=== PATIENT | male | born 1955 | race Caucasian/White ===

== ENCOUNTER → 2016-11-22 | Outpatient (CLI) | payer BC ==
--- NOTE | 2016-11-24 05:51 | SLEEPCENT ---
DATE OF PROCEDURE: 11/22/2016 ORDERED BY: CAPO Rasheed Nocturnal polysomnography was performed for the titration of pressure therapy in this patient with obstructive sleep apnea syndrome, apnea hypopnea index of 19. For testing, the patient was fit with a ResMed AirFit F10 full face mask of medium size. 4 cm of water pressure were applied to the circuit and the lights were extinguished. 7 hours and 47 minutes of data were reviewed. There were 398 minutes of sleep identified. Sleep latency was prolonged at 35 minutes. Rapid eye movement (REM) latency was short at 53 minutes. Sleep architecture was good with 5 REM periods appreciated. Overall sleep efficiency was 86%. The patient's electrocardiogram (EKG) showed a sinus rhythm with an average heart rate of 62 beats per minute. Electroencephalogram (EEG) showed reasonably normal waveforms for awake and sleep. No focal events were identified. Respiratory events were found palliated with CPAP at a pressure of +10 with which pressure the patient slept through REM without oxygen desaturation. Remaining measures of sleep physiology were normal. IMPRESSION: Obstructive sleep apnea syndrome (G47.33). RECOMMENDATION: Nightly use of pressure therapy 10 cm of water.
== END ==
LOC: M SLEEP 19:29
PROVIDERS: ATTEND Nurse Practitioner Adult Health
DX: G47.33 Obstructive sleep apnea (adult) (pediatric) (principal)

== ENCOUNTER → 2018-01-09 | Outpatient (REF) | payer BC ==
[2018-01-09 14:03] LABS: TROPONIN I < 0.02 NG/ML (< 0.10)
[2018-01-09 14:15] LABS: VITAMIN B12 LEVEL 328 PG/ML (247-911)
== END ==
LOC: M LAB REF 13:20
DX: R53.83 Other fatigue (principal); R07.89 Other chest pain
CPT/HCPCS: 82607

== ENCOUNTER → 2018-03-02 | Outpatient (CLI) | payer BC | LOC: M RAD 12:19 | DX: E04.9 Nontoxic goiter, unspecified (principal) | CPT/HCPCS: 78012 ==

== ENCOUNTER → 2018-04-17 | Outpatient (REF) | payer BC ==
[2018-04-17 12:12] LABS: TESTOSTERONE 318 NG/DL (241-827)
[2018-04-17 12:16] LABS: FREE T4 1.23 NG/DL (0.76-1.46)
[2018-04-20 10:12] LABS: TESTOSTERONE %FREE+WEAKLY BOUN 16.9 % (9.0-46.0); TESTOSTERONE FREE+WEAKLY BOUND 53.4 ng/dL (40.0-250.0); TESTOSTERONE TOTAL 316 ng/dL (264-916)
== END ==
LOC: M LABDRAW1 11:04
DX: E05.20 Thyrotoxicosis with toxic multinodular goiter without thyrotoxic crisis or storm (principal); E29.1 Testicular hypofunction
CPT/HCPCS: 84403

== ENCOUNTER → 2018-04-20 | Outpatient (REF) | payer BC | LOC: M LAB REF 13:42 | DX: E04.1 Nontoxic single thyroid nodule (principal) | CPT/HCPCS: 88173 ==

== ENCOUNTER → 2018-07-18 | Outpatient (REF) | payer BC ==
[2018-07-18 14:13] LABS: FREE T3 3.1 PG/ML (2.2-4.0)
== END ==
LOC: M LAB REF 11:49
DX: E05.90 Thyrotoxicosis, unspecified without thyrotoxic crisis or storm (principal)
CPT/HCPCS: 84481

== ENCOUNTER → 2019-02-16 | Outpatient (REF) | payer BC | LOC: M LAB REF 12:38 | PROVIDERS: ATTEND Internal Medicine | DX: N52.9 Male erectile dysfunction, unspecified (principal) ==

== ENCOUNTER → 2019-03-05 | Outpatient (REF) | payer BC | LOC: M LAB REF 18:35 | PROVIDERS: ATTEND Internal Medicine Endocrinology, Diabetes & Metabolism | DX: E04.1 Nontoxic single thyroid nodule (principal) ==

== ENCOUNTER 2019-06-30 10:43 | Emergency (ER) | payer BC ==
[~2019-06-30] VITALS: Ht 170.2 cm; Wt 90.0 kg
[2019-06-30] MEDS ORDERED: ELIQ5TAB (10:54)
[2019-06-30] MEDS ORDERED: SIMV40TA2 (10:54)
[2019-06-30] MEDS ORDERED: LISI-542 (10:54)
[2019-06-30] MEDS ORDERED: CYCL10TA (10:54)
[2019-06-30] MEDS ORDERED: SILD100T (10:54)
[2019-06-30] MEDS ORDERED: METO1TAB32 (10:54)
[2019-06-30] MEDS ORDERED: OXYC1TAB23 (10:54)
[2019-06-30] MEDS ORDERED: METF500T13 (10:54)
[2019-06-30] MEDS ORDERED: JARD1TAB (10:54)
[2019-06-30] MEDS ORDERED: OMEP-221 (10:54)
[2019-06-30] MEDS ORDERED: MORPHINE 4 MG/ML 1ML VIAL/SYRINGE (J2270) IV ONE (12:15)
[2019-06-30] MEDS ORDERED: ONDANSETRON 4MG/2ML VIAL (J2405) IV ONE (12:15)
[2019-06-30 12:45] LABS: HEMATOCRIT 43.4 % (42.0-52.0); HEMOGLOBIN 15.2 g/dl (13.5-17.5); MEAN CORPUSCULAR HEMOGLOBIN 31.8 pg (27.0-33.0); MEAN CORPUSCULAR VOLUME 90.8 fl (80.0-96.0); PLATELET COUNT, AUTOMATED 192 10^3/uL (150-450); RED BLOOD COUNT 4.78 10^6/uL (4.30-6.10); WHITE BLOOD COUNT 4.7 10^3/uL (4.0-10.0)
[2019-06-30 13:08] LABS: ALBUMIN 3.8 GM/DL (3.2-5.2); ALT/SGPT 39 U/L (12-78); BILIRUBIN,DIRECT 0.1 MG/DL (0.0-0.2); BILIRUBIN,TOTAL 0.4 MG/DL (0.2-1.0); BLOOD UREA NITROGEN 19 MG/DL (7-18); C REACTIVE PROTEIN QUANTITATIV < 0.30 MG/DL (0.00-0.30); CALCIUM LEVEL 8.3 MG/DL (8.8-10.2); CARBON DIOXIDE LEVEL 28 MEQ/L (21-32); CHLORIDE LEVEL 107 MEQ/L (98-107); CREATININE FOR GFR 1.06 MG/DL (0.70-1.30); GLOMERULAR FILTRATION RATE > 60.0 (>49); GLUCOSE, FASTING 176 MG/DL (70-100); POTASSIUM SERUM 4.3 MEQ/L (3.5-5.1); SODIUM LEVEL 139 MEQ/L (136-145); TOTAL PROTEIN 6.6 GM/DL (6.4-8.2)
[2019-06-30 13:09] LABS: ERYTHROCYTE SEDIMENTATION RATE 7 mm/hr (0-20)
--- NOTE | 2019-06-30 14:04 | REP ---
Clinical: Increasing lumbar back pain. Technique: Axial noncontrast images from T12 through mid sacrum with coronal and sagittal re-formations. Findings: Alignment and lordosis maintained. Vertebral bodies are intact. No acute fracture / compression injury or subluxation. Small posterior disc bulges are noted at L3-4, L4-5, and L5-S1. Disc spaces are relatively maintained. Right-sided neural foramen appear patent. The left L3-4, L4-5 and L5-S1 neural foramen appear patent although subtle encroaching disc material on the exiting nerve roots cannot be excluded. Impression: 1. No acute fracture / compression injury or subluxation. 2. Small posterior disc bulges at L3 through S1. Electronically Signed by Lacho Patricia MD 06/30/2019 01:55 P
[2019-06-30] MEDS ORDERED: MORPHINE 2 MG/ML 1ML SYRINGE (J2270) IV ONE (14:45)
[2019-06-30] MEDS ORDERED: PRED10TA2 PO (16:35)
[2019-06-30 16:38] VITALS: BP 139/84
--- NOTE | 2019-07-01 07:36 | ED PDOC ---
Post-Departure Follow-Up dr cummings faxed formal report of ct ls spine for fu Ysabel Reardon MD Jul 01, 2019 07:36
== END 2019-06-30 17:21 | disposition home or self-care (01) ==
LOC: M ED 10:43
DX: M51.36 Other intervertebral disc degeneration, lumbar region (principal); M54.32 Sciatica, left side; G95.9 Disease of spinal cord, unspecified; E11.9 Type 2 diabetes mellitus without complications; I10 Essential (primary) hypertension; I48.91 Unspecified atrial fibrillation; K21.9 Gastro-esophageal reflux disease without esophagitis; G47.30 Sleep apnea, unspecified; Z99.89 Dependence on other enabling machines and devices; Z79.899 Other long term (current) drug therapy; Z79.84 Long term (current) use of oral hypoglycemic drugs; Z79.01 Long term (current) use of anticoagulants
CPT/HCPCS: 72131; 80048; 80076; 81001; 85027; 85652; 86140; 96374; 96375; 96376; 99284; J2270; J2405

== ENCOUNTER → 2019-07-13 | Outpatient (CLI) | payer BC ==
[~2019-07-13] MED LIST: CYCL10TA; ELIQ5TAB; JARD1TAB; LISI-542; METF500T13; METO1TAB32; OMEP-221; OXYC1TAB23; PRED10TA2 PO; SILD100T; SIMV40TA20
--- NOTE | 2019-07-13 15:09 | REP ---
WHOLE BODY BONE SCAN: Following the intravenous administration of 21.7 millicuries technetium 99m MDP, patient's whole body is imaged in the anterior and posterior projections with additional oblique and lateral views obtained. Correlation made with prior CT 07/11/2019 and MRI 06/28/2019. The MRI showed a possible bone lesion in the L1 vertebral body. There is no abnormal uptake at the L1 vertebral body. Normal homogeneous uptake is seen throughout the axial and appendicular skeleton. There is a very mild increased uptake in the medial aspect of the right knee joint compatible with mild arthritic changes. There is some minimal tarsal region uptake compatible with minimal arthritic change at those locations. IMPRESSION: No abnormal uptake at the L1 level at the site of the possible bone lesion by MRI performed 06/28/2019. No compelling scintigraphic evidence of osseous metastases. 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 Electronically Signed by Mp Mccarty MD 07/13/2019 03:20 P
== END ==
LOC: M RAD 09:37
PROVIDERS: ATTEND Nurse Practitioner Adult Health
DX: D48.0 Neoplasm of uncertain behavior of bone and articular cartilage (principal)
CPT/HCPCS: 78306; A9503

== ENCOUNTER → 2019-08-06 | Outpatient (REF) | payer BC ==
[2019-08-06 13:59] LABS: FREE THYROXINE INDEX 4.5 % (1.4-3.8); THYROID STIMULATING HORMONE 0.03 uIU/ML (0.358-3.740); THYROXINE (T4) 13.1 UG/DL (4.5-12.0)
== END ==
LOC: M LAB REF 12:08
PROVIDERS: ATTEND Internal Medicine
DX: I48.0 Paroxysmal atrial fibrillation (principal)

== ENCOUNTER → 2020-09-01 | Outpatient (REF) | payer BC ==
[~2020-09-01] MED LIST changes: +CYCL-707; -CYCL10TA
[2020-09-01 18:26] LABS: MALB URINE SIEMENS 70.3 MG/L; MAU/CREAT RATIO 54.9 MCG/MG (0.0-30.0)
== END ==
LOC: M LAB REF 12:46
PROVIDERS: ATTEND Internal Medicine Endocrinology, Diabetes & Metabolism
DX: E11.65 Type 2 diabetes mellitus with hyperglycemia (principal)

== ENCOUNTER → 2022-10-08 | Outpatient (REF) | payer BC ==
[~2022-10-08] MED LIST changes: -LISI-542; +LISI5TAB11; -OMEP-221; +OMEP40CA5
[2022-10-08 18:54] LABS: BACTERIA, URINE NONE SEEN; HYALINE CAST, URINE NONE SEEN /lpf (0-1); MUCUS, URINE SMALL AMOUNT (NEGATIVE); RBC, URINE 30-40 /hpf (0-3); SQUAMOUS EPITHELIAL CELL URINE NONE SEEN /hpf (SMALL AMT)
== END ==
LOC: M LAB REF 16:27
PROVIDERS: ATTEND Physician Assistant Medical
DX: R31.9 Hematuria, unspecified (principal); N39.0 Urinary tract infection, site not specified

== ENCOUNTER → 2023-01-12 | Outpatient (CLI) | payer BC | LOC: M RAD 12:23 | PROVIDERS: ATTEND Internal Medicine | DX: R31.29 Other microscopic hematuria (principal) ==

== ENCOUNTER → 2023-03-25 | Outpatient (REF) | payer BC ==
[2023-03-25 13:45] LABS: IRON (FE) 86 UG/DL (65-175); PERCENT SATURATION 21.8 % (19.7-50.0); TOTAL IRON BINDING CAPACITY 395 UG/DL (250-425)
[2023-03-25 13:47] LABS: FERRITIN 21.7 NG/ML (10.5-307.3)
[2023-03-25 13:58] LABS: HEPATITIS B SURFACE ANTIGEN NEGATIVE (NEGATIVE)
[2023-03-25 14:20] LABS: HEPATITIS B CORE ANTIBODY IGM NEGATIVE (NEGATIVE)
== END ==
LOC: M LAB REF 12:03
PROVIDERS: ATTEND Internal Medicine
DX: K76.0 Fatty (change of) liver, not elsewhere classified (principal)

== ENCOUNTER → 2023-11-08 | Outpatient (CLI) | payer BC | LOC: M RAD 07:05 | PROVIDERS: ATTEND Internal Medicine | DX: K76.0 Fatty (change of) liver, not elsewhere classified (principal); K76.89 Other specified diseases of liver; N28.89 Other specified disorders of kidney and ureter ==

== ENCOUNTER → 2023-12-13 | Outpatient (CLI) | payer BC | LOC: M WUC 14:36 | PROVIDERS: ATTEND Internal Medicine | DX: M40.50 Lordosis, unspecified, site unspecified (principal); M50.323 Other cervical disc degeneration at C6-C7 level; M89.38 Hypertrophy of bone, other site ==

== ENCOUNTER → 2024-02-08 | Outpatient (REF) | payer BC ==
[2024-02-08 14:24] LABS: FOLATE 11.7 NG/ML (>5.4)
== END ==
LOC: M LAB REF 12:59
PROVIDERS: ATTEND Internal Medicine
DX: D64.9 Anemia, unspecified (principal)

== ENCOUNTER → 2024-04-11 | Outpatient (REF) | payer BC | LOC: M LAB REF 11:22 | PROVIDERS: ATTEND Internal Medicine | DX: K74.00 Hepatic fibrosis, unspecified (principal) ==

== ENCOUNTER → 2024-05-22 | Outpatient (CLI) | payer BC | LOC: M RAD 07:56 | PROVIDERS: ATTEND Internal Medicine | DX: K74.00 Hepatic fibrosis, unspecified (principal); K76.89 Other specified diseases of liver ==

== ENCOUNTER 2024-08-20 09:47 | Day surgery (SDC) | payer BC ==
[~2024-08-20] VITALS: Ht 170.2 cm; Wt 89.6 kg
[~2024-08-20 09:47] MED LIST changes: +ASPI81TA26 PO; +ELIQ5TAB PO; +JANU100T PO; +LISI5TAB11 PO; +METF500T13 PO; +METO1TAB32 PO; +NS 250 ML IV ONE; +OMEP40CA4 PO; +SIMV40TA20 PO
[2024-08-20] MEDS ORDERED: propofoL 200 MG/20 ML VIAL As Ordered ONE (09:57)
[2024-08-20] MEDS ORDERED: LIDOCAINE 2% 100MG/5ML SDV (FOR ANES.) As Ordered ONE (09:57)
[2024-08-20 11:39] VITALS: TEMP 97.3
[2024-08-20 12:00] VITALS: BP 149/72; O2SAT 94
== END 2024-08-20 12:11 | disposition home or self-care (01) ==
LOC: M OPP 09:47
PROVIDERS: ATTEND Internal Medicine Gastroenterology
DX: Z12.11 Encounter for screening for malignant neoplasm of colon (principal); Z12.12 Encounter for screening for malignant neoplasm of rectum; D12.4 Benign neoplasm of descending colon; K57.30 Diverticulosis of large intestine without perforation or abscess without bleeding; K64.0 First degree hemorrhoids; K21.9 Gastro-esophageal reflux disease without esophagitis; Z90.49 Acquired absence of other specified parts of digestive tract; I48.91 Unspecified atrial fibrillation; E11.9 Type 2 diabetes mellitus without complications; I10 Essential (primary) hypertension; E78.00 Pure hypercholesterolemia, unspecified; Z95.5 Presence of coronary angioplasty implant and graft; G47.30 Sleep apnea, unspecified; Z79.82 Long term (current) use of aspirin; Z79.01 Long term (current) use of anticoagulants; Z79.84 Long term (current) use of oral hypoglycemic drugs; Z79.899 Other long term (current) drug therapy; Z90.89 Acquired absence of other organs

== ENCOUNTER → 2024-11-02 | Outpatient (REF) | payer BC ==
[~2024-11-02] MED LIST changes: -NS 250 ML IV ONE
[2024-11-02 13:22] LABS: APPEARANCE, URINE HAZY (CLEAR); BACTERIA, URINE AUTO 1+ (NEGATIVE); BILIRUBIN, URINE AUTO NEGATIVE (NEGATIVE); BLOOD, URINE BLOOD 3+ (NEGATIVE); COLOR, URINE YELLOW (YELLOW); GLUCOSE, URINE (UA) AUTO NEGATIVE (NEGATIVE); KETONE, URINE AUTO NEGATIVE (NEGATIVE); LEUKOCYTE ESTERASE, URINE AUTO TRACE (NEGATIVE); MUCUS, URINE SMALL (NEGATIVE); NITRITE, URINE AUTO NEGATIVE (NEGATIVE); PROTEIN, URINE AUTO 2+ mg/dL (NEGATIVE); RBC, URINE AUTO TNTC /HPF (0-3); SPECIFIC GRAVITY URINE AUTO 1.021 (1.002-1.035); SQUAMOUS EPITHELIAL CELL UR AU 0 /HPF (0-6); UROBILINOGEN, URINE AUTO 0.2 mg/dL (0.0-2.0); WBC, URINE AUTO 21 /HPF (0-3)
== END ==
LOC: M LAB REF 11:27
PROVIDERS: ATTEND Internal Medicine
DX: Z01.818 Encounter for other preprocedural examination (principal); K74.00 Hepatic fibrosis, unspecified; K76.0 Fatty (change of) liver, not elsewhere classified

== ENCOUNTER → 2025-06-20 | Outpatient (REF) | payer BC | LOC: M LAB REF 12:21 | PROVIDERS: ATTEND Internal Medicine | DX: K74.00 Hepatic fibrosis, unspecified (principal) ==

== ENCOUNTER 2025-08-28 08:37 | Emergency (ER) | payer BC ==
[~2025-08-28] VITALS: Ht 170.2 cm; Wt 92.8 kg
[2025-08-28] MEDS ORDERED: METO1TAB7 (09:02)
[2025-08-28] MEDS ORDERED: FURO20TA2 (09:02)
[2025-08-28] MEDS ORDERED: AMLO1TAB25 (09:02)
[2025-08-28] MEDS ORDERED: GLIP5TAB17 (09:02)
[2025-08-28] MEDS ORDERED: ALBU8.5H (09:02)
[2025-08-28] MEDS ORDERED: ATOR80TA59 (09:02)
[2025-08-28] MEDS ORDERED: LISI30TA4 (09:02)
[2025-08-28] MEDS ORDERED: EZET10TA57 (09:02)
[2025-08-28 10:20] LABS: BASO # 0.0 10^3/uL (0.0-0.2); BASO % 0.5 % (0.0-1.0); EOS # 0.2 10^3/uL (0.0-0.5); EOS % 3.0 % (0.0-3.0); LYMPH # 1.0 10^3/uL (1.5-5.0); LYMPH % 13.0 % (24.0-44.0); MONO # 0.5 10^3/uL (0.0-0.8); MONO % 6.3 % (2.0-8.0); NEUTROPHILS # 5.7 10^3/uL (1.5-8.5); NEUTROPHILS % 76.8 % (36.0-66.0); PLATELET COUNT, AUTOMATED 237 10^3/uL (150-450)
[2025-08-28 10:39] LABS: INR 1.05
[2025-08-28 10:43] LABS: C REACTIVE PROTEIN QUANTITATIV < 0.50 MG/DL (<1.0); CALCIUM LEVEL 9.2 MG/DL (8.3-10.6); CARBON DIOXIDE LEVEL 25 MMOL/L (20-31); CHLORIDE LEVEL 104 MMOL/L (98-107); CREATININE FOR GFR 1.18 MG/DL (0.70-1.30); GLOMERULAR FILTRATION RATE 66.4 (>42); POTASSIUM SERUM 4.8 MMOL/L (3.5-5.1); SODIUM LEVEL 139 MMOL/L (136-145)
[2025-08-28] MEDS: MORPHINE 4 MG/ML 1 ML VIAL IV ONE (13:10)
[2025-08-28] MEDS: ACETAMINOPHEN *IV* 1,000 MG in IV 1 EA IV ONE (13:12)
[2025-08-28] MEDS ORDERED: ISOVUE-370 76% 100 ML VIAL As Ordered ONE (13:31)
[2025-08-28 15:07] VITALS: BP 158/82; TEMP 97.8; O2SAT 100
== END 2025-08-28 15:11 | disposition home or self-care (01) ==
LOC: M ED 08:37
DX: M25.522 Pain in left elbow (principal); E11.9 Type 2 diabetes mellitus without complications; I10 Essential (primary) hypertension; E78.5 Hyperlipidemia, unspecified; Z91.09 Other allergy status, other than to drugs and biological substances; Z79.51 Long term (current) use of inhaled steroids; Z79.01 Long term (current) use of anticoagulants; Z79.1 Long term (current) use of non-steroidal anti-inflammatories (NSAID); Z79.84 Long term (current) use of oral hypoglycemic drugs; Z79.899 Other long term (current) drug therapy
CPT/HCPCS: 36415; 73080; 73201; 80048; 84145; 85025; 85610; 85652; 86140; 87040; 93971; 96365; 96375; 99284; J0131; Q9967

== ENCOUNTER → 2025-09-18 | Outpatient (CLI) | payer BC ==
[~2025-09-18] MED LIST changes: +ALBU8.5H; +AMLO1TAB25; +ATOR80TA59; +EZET10TA57; +FURO20TA2; +GLIP5TAB17; +LISI30TA4; +METO1TAB7
== END ==
LOC: M RAD 07:50
PROVIDERS: ATTEND Internal Medicine
DX: K76.0 Fatty (change of) liver, not elsewhere classified (principal); K74.00 Hepatic fibrosis, unspecified